=== PATIENT | male | born 1995 ===

== ENCOUNTER 2018-01-03 20:50 | Emergency (ER) | payer SELFPAY ==
[2018-01-03 20:58] VITALS: BP 151/92; PULSE 100; RESP 18; TEMP 98.8; O2SAT 100
--- NOTE | 2018-01-03 21:29 | C.PDOC ---
History Of Present Illness 22 year old male presents to the ER with a complaint of left leg pain that began this morning. Patient states he feels the pain more so to his calf, notes it worsens with movement, and occasionally gets a numbing sensation to the left foot. Denies trauma, fall, heavy lifting, weakness, or numbness. Patient also notes having a sore throat. Denies fever. Time Seen by Provider: 01/03/18 21:03 Chief Complaint (Nursing): Lower Extremity Problem/Injury History Per: Patient History/Exam Limitations: no limitations Onset/Duration Of Symptoms: Hrs Current Symptoms Are (Timing): Still Present Recent travel outside of the [place]: No Past Medical History Reviewed: Historical Data, Nursing Documentation, Vital Signs Vital Signs: Last Vital Signs Temp 98.8 F 01/03/18 20:56 Pulse 100 H 01/03/18 20:56 Resp 18 01/03/18 20:56 BP 151/92 H 01/03/18 20:56 Pulse Ox 100 01/03/18 22:10 Family History: States: Unknown Family Hx - Social History Hx Alcohol Use: No Hx Substance Use: No - Immunization History Hx Tetanus Toxoid Vaccination: No Hx Influenza Vaccination: No Hx Pneumococcal Vaccination: No Review Of Systems Constitutional: Negative for: Fever, Chills ENT: Positive for: Throat Pain Respiratory: Positive for: Cough Musculoskeletal: Positive for: Leg Pain Neurological: Negative for: Weakness, Numbness Physical Exam - Physical Exam Appears: Non-toxic Skin: Normal Color, Warm, Dry Head: Atraumatic, Normacephalic Eye(s): bilateral: Normal Inspection Ear(s): Bilateral: Normal Nose: Normal Oral Mucosa: Moist Throat: Normal, No Erythema, No Exudate Neck: Normal, Supple Back: No Vertebral Tenderness, No Paraspinal Tenderness Extremity: Normal ROM (x4), No Tenderness, No Calf Tenderness, Capillary Refill (<2 seconds), No Deformity, No Swelling Pulses: Left Dorsalis Pedis: Normal, Right Dorsalis Pedis: Normal Neurological/Psych: Oriented x3, Normal Speech, Normal Motor, Normal Sensation ED Course And Treatment O2 Sat by Pulse Oximetry: 100 (Room air) Pulse Ox Interpretation: Normal Medical Decision Making Medical Decision Making: D Dimer ordered. Patient is refusing pain medication at this time. D dimer was found to be negative and the patient has a low risk for DVT. Disposition - Disposition Referrals: [facility] [Outside] Disposition: HOME/ ROUTINE Disposition Time: 22:09 Condition: GOOD Additional Instructions: follow up with the medical doctor within 1-2 days. Return if worsened. Prescriptions: Ibuprofen [Motrin] 600 mg PO TID #21 tab Instructions: Sciatica Forms: [employer] (Azeri) - POA Present On Arrival: None - Clinical Impression Clinical Impression: Sciatica, Leg pain - Scribe Statement The provider has reviewed the documentation as recorded by the Scribe Miguel A Cheney All medical record entries made by the Scribe were at my direction and personally dictated by me. I have reviewed the chart and agree that the record accurately reflects my personal performance of the history, physical exam, medical decision making, and the department course for this patient. I have also personally directed, reviewed, and agree with the discharge instructions and disposition.
== END 2018-01-03 22:25 | disposition home or self-care (01) ==
LOC: C.ER 20:50
DX: M54.30 Sciatica, unspecified side (principal); M79.605 Pain in left leg